=== PATIENT | female | born 1995 | race Caucasian/White ===

== ENCOUNTER → 2021-03-19 | Outpatient (CLI) | payer BC ==
[~2021-03-19] MED LIST: ALDACTONE50 MG PO; CEFTRIAXONE2 G1 IV PUSH; LOW-OGESTREL1 EACH PO; NORCO 5-325 TA1 EACH PO; PNV 29-1 TABLE1 EACH PO; VITAMIN B-12500 MCG PO
[2021-03-19 14:45] VITALS: BP 122/79
--- NOTE | 2021-03-19 14:58 | NUR ---
A #4F SINGLE LUMEN PICC WAS PLACED PER HOSPITAL POLICY AFTER A BEDSIDE TIMEOUT WAS COMPLETED. THE RIGHT BASILIC VEIN WAS WIDLEY PATENT. THE PATIENT VERBALIZED UNDERSTANDING OF BENIFITS AND RISK FOR DVT AND INFECTION. THE LINE WAS TRIMMED TO 47CM AND ADVANCED WITHOUT DIFFICULTY TO 3CM EXTERNAL. THE LINE WAS CONFIRMED WITH SHERILENE 3CG, CONFIRMED AND RELEASED FOR USE
[2021-03-19 15:03] LABS: ABSOLUTE NEUTROPHILS 5.9 thou/uL (1.4-8.2); BASOPHILS 0.4 % (0.0-2.0); EOSINOPHILS 0.8 % (0.0-3.0); HEMATOCRIT 38.2 % (37.0-47.0); HEMOGLOBIN 12.8 gm/dL (12.0-15.0); LYMPHOCYTES 21.5 % (24.0-44.0); MCH 29.5 pg (26.0-34.0); MCHC 33.5 g/dL (28.0-37.0); MCV 87.9 fL (80.0-100.0); MONOCYTES 5.1 % (1.0-8.0); PLATELET COUNT 349 thou/uL (150-400); POLYS 72.2 % (36.0-66.0); RBC 4.35 mil/uL (4.20-5.00); RDW 13.4 % (10.5-14.5); WBC 8.2 thou/uL (4.0-11.0)
[2021-03-19 15:17] LABS: ALBUMIN 3.9 g/dL (3.4-5.0); CALCIUM 8.7 mg/dL (8.5-10.1); CREATININE 0.8 mg/dL (0.6-1.0); POTASSIUM 3.8 mmol/L (3.5-5.1); TOTAL BILIRUBIN 0.2 mg/dL (0.2-1.0); TOTAL PROTEIN 7.5 g/dL (6.4-8.2)
--- NOTE | 2021-03-19 15:48 | NUR ---
PT HERE FOR PICC PLACEMENT AND 1ST TIME DOSE OF CEFTRIAXONE. ARRIVED IN STABLE CONDITION. PICC LINE PLACED BY MARGARITA FROM IV TEAM. LABS DRAWN PER ORDER. [facility] MET PATIENT AT UNIT TO DO TEACHING FOR HOME INFUSION. REVIEWED INFO ON NEW MEDICATION AND PICC LINE CARE. TOLERATED FIRST DOSE OF CEFTRIAXONE WITH NO COMPLICATIONS. PT LEFT UNIT IN STABLE CONDITION AND COMMUNICATES UNDERSTANDING REGARDING HOME CARE.
== END ==
LOC: OPONC
PROVIDERS: ATTEND Specialist
DX: T81.49XA Infection following a procedure, other surgical site, initial encounter (principal); I82.409 Acute embolism and thrombosis of unspecified deep veins of unspecified lower extremity; Y83.8 Other surgical procedures as the cause of abnormal reaction of the patient, or of later complication, without mention of misadventure at the time of the procedure
CPT/HCPCS: 27000; 95000